=== PATIENT | female | born 1960 | race Two or more races ===

== ENCOUNTER 2025-05-20 05:30 | Day surgery (SDC) | payer OTHER ==
[2025-05-20] MEDS ORDERED: NALOXONE HCL 0.4 MG/ML AMPUL IV STA (09:42)
[2025-05-20] MEDS ORDERED: FLUMAZENIL 0.5 MG/5 ML ML IV STA (09:42)
[2025-05-20] MEDS ORDERED: DIPHENHYDRAMINE HCL 50 MG/ML VIAL 1ML IV ONE (09:45)
[2025-05-20] MEDS ORDERED: MIDAZOLAM HCL 2 MG/2 ML VIAL IV ONE (09:45)
[2025-05-20] MEDS ORDERED: fentaNYL CITRATE 50 MCG/ML AMPUL IV PUSH ONE (09:45)
== END 2025-05-20 11:35 | disposition home or self-care (01) ==
LOC: AMB-ENDOS 05:30
PROVIDERS: ATTEND Internal Medicine
DX: K31.7 Polyp of stomach and duodenum (principal); K29.00 Acute gastritis without bleeding; K29.80 Duodenitis without bleeding; D64.9 Anemia, unspecified